=== PATIENT | male | born 1970 | race Two or more races ===

== ENCOUNTER 2017-07-27 14:33 | Emergency (ER) | payer MEDICAID ==
[~2017-07-27] VITALS: Ht 188 cm; Wt 86.2 kg
[2017-07-27 15:28] VITALS: BP 108/65
[2017-07-27] MEDS ORDERED: IBUPROFEN600 MG ORAL (15:37)
[2017-07-27] MEDS ORDERED: PROMETHAZINE-D118 ML ORAL (15:37)
[2017-07-27 15:42] VITALS: BP 108/65
--- NOTE | 2017-07-27 21:58 | Emergency Room Report ---
History of Present Illness General Chief Complaint: General Complaint Source: Patient Present Illness HPI The patient is a 47-year-old male presenting for subjective fever, cough, and sore throat for the past 3 days. He denies any known sick contacts recent travel. Pain is an 8/10 dull ache primarily to the back of the throat. Worse with swallowing. He did not have to shot this year. He denies any other symptoms including nausea, vomiting, chest pain, shortness of breath, rash Allergies: Coded Allergies: No Known Allergies (Unverified , 07/27/17) Patient History Past Medical History: see triage record Pertinent Family History: none Reviewed Nursing Documentation: PMH: Agreed, PSxH: Agreed Nursing Documentation-PMH Past Medical History: No Stated History Review of Systems All Other Systems: negative except mentioned in HPI Physical Exam Vital Signs Date Time Temp Pulse Resp B/P (MAP) Pulse Ox O2 Delivery O2 Flow Rate FiO2 07/27/17 15:18 100.6 106 20 108/65 99 Room Air Sp02 EP Interpretation: reviewed, normal General Appearance: no apparent distress, alert, GCS 15, non-toxic Head: normocephalic, atraumatic Eyes: bilateral eye normal inspection, bilateral eye PERRL ENT: hearing grossly normal, no angioedema, normal voice, pharyngeal erythema Neck: full range of motion, supple/symm/no masses Respiratory: chest non-tender, lungs clear, normal breath sounds, speaking full sentences Musculoskeletal: back normal, gait/station normal, normal range of motion, non- tender Neurologic: alert, oriented x3, responsive, motor strength/tone normal, sensory intact, speech normal Psychiatric: judgement/insight normal, memory normal, mood/affect normal, no suicidal/homicidal ideation Skin: normal color, no rash, warm/dry, well hydrated Medical Decision Making PA Attestation Dr. José is my supervising physician. Patient management was discussed with my supervising physician Diagnostic Impression: Primary Impression: Pharyngitis Qualified Codes: J02.9 - Acute pharyngitis, unspecified ER Course The patient is a 47-year-old male presenting for subjective fever, cough, and sore throat for the past 3 days. Differential diagnosis include but not limited to pharyngitis, influenza, sinusitis, AOM, bronchitis, PNA Physical exam: febrile. No apparent distress HEENT exam: There is bilateral tonsillar erythema. No exudate. Uvula midline. Moist mucous membranes. There is no cervical lymphadenopathy. Lungs are clear to auscultation bilaterally Skin is warm and dry. No rash He is given Motrin for fever The patient will be discharged home with a prescription for motrin and cough medication and is given ER precautions. Patient will followup with primary care Last Vital Signs Date Time Temp Pulse Resp B/P (MAP) Pulse Ox O2 Delivery O2 Flow Rate FiO2 07/27/17 15:52 100.1 07/27/17 15:42 106 20 108/65 99 Room Air Status: improved Disposition: HOME, SELF-CARE Condition: Improved Scripts D-Methorphan Hb/Prometh Hcl* (PROMETHAZINE-DM SYRUP*) 118 Ml Syrup 5 ML ORAL Q6H Y for For Cough, #118 ML 0 Refills Prov: MARY DUNBAR.ALarry 07/27/17 Ibuprofen* (MOTRIN*) 600 Mg Tablet 600 MG ORAL Q8H Y for For Pain, #30 TAB 0 Refills Prov: MARY DUNBAR.ALarry 07/27/17 Referrals: [facility],REFERRING (PCP) Patient Instructions: Pharyngitis Additional Instructions: I discussed my findings with the patient. All questions and concerns have been answered. Treatment and medication compliance have been addressed. I advised the patient that they need to follow up with PMD in 3-5 days. Return to ED if pain remains or worsens, cough worsens or remains, you notice blood in your sputum, you notice wheezing, you experience a fever, or if needed for any reason. Patient verbalized understanding of discharge instructions. MARY DUNBAR Jul 27, 2017 21:58
== END 2017-07-27 15:51 | disposition home or self-care (01) ==
LOC: EMR 15:51
DX: J02.9 Acute pharyngitis, unspecified (principal)
CPT/HCPCS: 99284

== ENCOUNTER 2017-07-30 16:37 | Emergency (ER) | payer MEDICAID ==
[~2017-07-30] VITALS: Ht 188 cm; Wt 86.2 kg
[~2017-07-30 16:37] MED LIST: IBUPROFEN600 MG ORAL; PROMETHAZINE-D118 ML ORAL
[2017-07-30] MEDS ORDERED: NKM (16:46)
[2017-07-30 17:15] VITALS: BP 128/85
[2017-07-30 17:16] VITALS: BP 134/84
[2017-07-30] MEDS ORDERED: PREDNISONE20 MG ORAL (17:16)
--- NOTE | 2017-07-30 17:52 | Emergency Room Report ---
History of Present Illness General Chief Complaint: Sore Throat Source: Patient Present Illness HPI 47-year-old male presents ED complaining of sore throat. States he was here 3 days ago. Was given pain medications and discharge. Patient states the pain persisted he came back to ER for antibiotics. Pain as throbbing, 6/10, nonradiating. Notes cough. Denies fevers or chills. Denies sick contacts recent travel. No other aggravating or leading factors. Denies any other associated symptom Allergies: Coded Allergies: No Known Allergies (Unverified , 07/27/17) Patient History Past Medical History: none Past Surgical History: none Pertinent Family History: none Social History: Denies: smoking, alcohol use, drug use Immunizations: UTD Reviewed Nursing Documentation: PMH: Agreed, PSxH: Agreed Nursing Documentation-PMH Past Medical History: No Stated History Review of Systems All Other Systems: negative except mentioned in HPI Physical Exam Vital Signs Date Time Temp Pulse Resp B/P (MAP) Pulse Ox O2 Delivery O2 Flow Rate FiO2 07/30/17 16:44 98.1 78 19 128/85 97 Room Air Sp02 EP Interpretation: reviewed, normal General Appearance: no apparent distress, alert, GCS 15, non-toxic Head: normocephalic Eyes: bilateral eye normal inspection, bilateral eye PERRL ENT: hearing grossly normal, normal pharynx, no angioedema, normal voice, TMs + canals normal Neck: normal inspection Respiratory: chest non-tender, lungs clear, normal breath sounds, speaking full sentences Cardiovascular #1: normal inspection Gastrointestinal: normal inspection Rectal: deferred Genitourinary: no CVA tenderness Musculoskeletal: normal inspection Neurologic: alert, oriented x3, responsive, motor strength/tone normal, sensory intact, speech normal Psychiatric: normal inspection Skin: normal inspection Lymphatic: no adenopathy Medical Decision Making Diagnostic Impression: Primary Impression: Pharyngitis Qualified Codes: J02.9 - Acute pharyngitis, unspecified ER Course Hospital Course 47-year-old male presents to ED complaining of sore throat Differential diagnoses include: URI, pharyngitis, otitis media Clinical course Patient placed on stretcher. After initial history, physical exam reveals a male in no acute distress. Bilateral TM unremarkable. There is minimal pharyngeal erythema w/o tonsillar exudates. No lymphadenopathy. Patient was seen 2 days ago. Was noted to have viral pharyngitis and was encouraged against antibiotics. Patient states pain persists. Clinical findings consistent with viral pharyngitis. I discussed findings with the patient. Explained that with cough, no lymphadenopathy the likelihood of a strep pharyngitis is low. Explained that the disease course lasts 10-12 days Patient states he is having pain with swallowing. I offered option for Decadron but he declined. Will discharge on steroids. Patient agrees not to receive antibiotics Diagnosis - pharyngitis Stable and discharged home with prescriptions for prednisone. Instructed to followup with PMD. return to ED if symptoms recur or worsen Last Vital Signs Date Time Temp Pulse Resp B/P (MAP) Pulse Ox O2 Delivery O2 Flow Rate FiO2 07/30/17 16:44 98.1 78 19 128/85 97 Room Air Status: improved Disposition: HOME, SELF-CARE Condition: Stable Scripts Prednisone* (PREDNISONE*) 20 Mg Tablet 40 MG ORAL DAILY, #10 TAB Prov: IDALIA BISHOP M.D. 07/30/17 Referrals: [facility],REFERRING (PCP) Patient Instructions: Pharyngitis, [id number] IDALIA BISHOP M.D. Jul 30, 2017 17:52
== END 2017-07-30 17:20 | disposition home or self-care (01) ==
LOC: EMR 17:07
DX: J02.9 Acute pharyngitis, unspecified (principal)
CPT/HCPCS: 99283

== ENCOUNTER 2018-07-17 11:06 | Emergency (ER) | payer MEDICAID ==
[~2018-07-17] VITALS: Ht 188 cm; Wt 83.9 kg
[~2018-07-17 11:06] MED LIST changes: +NKM; +PREDNISONE20 MG ORAL
[2018-07-17 11:16] VITALS: BP 140/88
--- NOTE | 2018-07-17 12:03 | Diagnostic Imaging Report ---
Indication: Shortness of breath Technique: XRAY Chest 1v Comparison: None Findings: Heart size and mediastinal contours are within normal limits for AP technique. There is no focal consolidation, pneumothorax or pleural effusion. There is a 7 mm subtle somewhat nodular density projecting over the lateral aspect of the right lower lung which may represent a nipple shadow versus pulmonary nodule versus artifact. Osseous structures demonstrate no acute abnormality. IMPRESSION: No radiographic evidence of acute cardiopulmonary disease. 7 mm subtle somewhat nodular density projecting over the lateral aspect of the right lower lung which may represent a nipple shadow versus pulmonary nodule versus artifact. Repeat exam with nipple markers can be obtained.
[2018-07-17] MEDS ORDERED: PROMETHAZINE-D473 M1 PO (12:10)
[2018-07-17 12:20] VITALS: BP 125/87
--- NOTE | 2018-07-17 13:01 | Emergency Room Report ---
History of Present Illness General Chief Complaint: Upper Respiratory Illness Source: Patient Present Illness HPI Patient present with cough Reports ongoing since last Saturday Denies any chest pain Denies any shortness of breath There was some productive sputum previously Patient also has a mild sore throat denies any headache denies any neck pain denies any photophobia denies any blood tinge Allergies: Coded Allergies: No Known Allergies (Unverified , 07/27/17) Patient History Past Medical History: see triage record Pertinent Family History: none Reviewed Nursing Documentation: PMH: Agreed; PSxH: Agreed Nursing Documentation-PMH Past Medical History: No Stated History Review of Systems All Other Systems: negative except mentioned in HPI Physical Exam Vital Signs Date Time Temp Pulse Resp B/P (MAP) Pulse Ox O2 Delivery O2 Flow Rate FiO2 07/17/18 11:10 97.5 66 18 140/88 98 Room Air 07/17/18 11:16 99 Sp02 EP Interpretation: reviewed, normal General Appearance: well appearing, no apparent distress Head: normocephalic, atraumatic Eyes: bilateral eye PERRL, bilateral eye EOMI ENT: hearing grossly normal, normal pharynx, TMs + canals normal, uvula midline Neck: full range of motion, supple, no meningismus, no bony tend Respiratory: lungs clear, normal breath sounds, no rhonchi, no respiratory distress, no retraction, no accessory muscle use Cardiovascular #1: normal peripheral pulses, regular rate, rhythm, no edema, no gallop, no JVD, no murmur Gastrointestinal: normal bowel sounds, non tender, soft, no mass, no organomegaly, non-distended, no guarding, no hernia, no pulsatile mass, no rebound Genitourinary: no CVA tenderness Musculoskeletal: normal inspection Neurologic: oriented x3, responsive, in mold coater III-XII nml as tested, motor strength/ tone normal, sensory intact Psychiatric: mood/affect normal Skin: normal color, no rash, warm/dry, palpation normal Lymphatic: normal inspection, no adenopathy Medical Decision Making Diagnostic Impression: Primary Impression: cough ER Course Given the duration of symptoms patient had imaging obtained No obvious acute pathology is seen There is a question of a nipple miriam versus other Patient does not have smoking history is recommended to follow closely outpatient Chest X-Ray Diagnostic Results Chest X-Ray Diagnostic Results : Chest X-Ray Ordered: Yes # of Views/Limited/Complete: 1 View Indication: Chest Pain EP Interpretation: Yes Interpretation: no consolidation, no effusion, no pneumothorax Impression: No acute disease Electronically Signed by: Suzanne Luna DO Last Vital Signs Date Time Temp Pulse Resp B/P (MAP) Pulse Ox O2 Delivery O2 Flow Rate FiO2 07/17/18 12:20 97.5 75 22 125/87 98 Room Air 07/17/18 11:16 99 Status: improved Disposition: HOME, SELF-CARE Condition: Stable Scripts Promethazine/Dextromethorphan (Promethazine-Dm Syrup) 473 Ml Syrup 10 ML PO BID for 5 Days, ML Prov: Suzanne Luna DO 07/17/18 Referrals: NON PHYSICIAN (PCP) Patient Instructions: Cough, Adult, [id number] Additional Instructions: Patient is provided with the discharge instructions notified to follow up with primary doctor in the next 2-3 days otherwise return to the er with any worsening symptoms. Please note that this report is being documented using [employer] technology. This can lead to erroneous entry secondary to incorrect interpretation by the dictating instrument. Suzanne Luna DO Jul 17, 2018 13:01
== END 2018-07-17 12:22 | disposition home or self-care (01) ==
LOC: EMR 11:26
DX: R05 Cough (principal)
CPT/HCPCS: 71045; 99283